=== PATIENT | female | born 1970 | race Caucasian/White ===

== ENCOUNTER 2019-04-17 15:36 | Emergency (ER) | payer OTHER ==
[~2019-04-17] VITALS: Ht 160 cm; Wt 62.1 kg
[~2019-04-17 15:36] MED LIST: DIL100 PO; DILANTIN100 MG PO; FER300 PO; VITC PO
[2019-04-17 15:39] VITALS: Ht 160 cm; Wt 62.1 kg
--- NOTE | 2019-04-17 15:42 | NUR ---
PT AWAKE, ALERT, NO SIGNS OF RESPIRATORY DISTRESS NOTED AT THIS TIME, DENIES CP ON ARRIVAL.
--- NOTE | 2019-04-17 15:43 | NUR ---
EKG DONE @ [facility].
--- NOTE | 2019-04-17 16:46 | NUR ---
MSE COMPLETED BY DR ROMAN. PT REPORTS SHE HAD A SYNCOPAL EPISODE LAST NIGHT; PRIOR TO SYNCOPAL EPISODE SHE FELT PALPITATIONS. PT REPORTS SHE IS HERE TODAY FOR CONCERN OF PALPITATIONS. NSR ON MONITOR AT THIS TIME. PT IS AAOX4; BREATHING E/U. NO SIGNS OF DISCOMFORT. PT STS SHE IS ALSO CONCERNED IF SHE HAS ANEMIA
[2019-04-17 17:04] LABS: PLATELET COUNT 392 x10^3mcL (130-400)
[2019-04-17 17:08] LABS: RED CELL DISTRIBUTION WIDTH 20.2 % (11.5-14.5)
[2019-04-17 17:09] LABS: CALCIUM 8.4 mg/dL (8.5-10.1); CARBON DIOXIDE 27.5 mmol/L (21-32); CHLORIDE SERUM 105 mmol/L (98-107); CREATININE SERUM 0.5 mg/dL (0.6-1.0); GFR1 > 60 mL/min; GLUCOSE SERUM 102 mg/dL (74-106); POTASSIUM SERUM 3.6 mmol/L (3.5-5.1); SODIUM SERUM 142 mmol/L (136-145)
[2019-04-17 17:13] LABS: ALBUMIN 3.8 g/dL (3.4-5.0); ALKALINE PHOSPHATASE 82 U/L (46-116); ALT/SGPT 23 U/L (14-59); AST/SGOT 4 U/L (15-37); BILIRUBIN TOTAL 0.5 mg/dL (0.20-1.00); MAGNESIUM 2.1 mg/dL (1.8-2.4); TOTAL PROTEIN, SERUM 7.6 g/dL (6.4-8.2)
[2019-04-17 17:30] LABS: T3 TOTAL 1.09 ng/mL
--- NOTE | 2019-04-17 17:30 | NUR ---
LYING ON GURNEY, FULL MONITORS IN PLACE. BREATHING E/U. NAD NOTED
[2019-04-17 17:50] LABS: BAND NEUTROPHIL 5 % (0-10); BASOPHIL 0 % (0-2); MONOCYTE 10 % (0-7); SEGMENTED NEUTROPHILS 60 % (37-75); rbc morphology (normal/abnorm) ABNORMAL (NORMAL)
[2019-04-17 17:52] LABS: PLATELET MORPHOLOGY PLATELETS NORMAL
[2019-04-17 17:58] LABS: FREE THYROXINE INDEX 2.6 ug/dL (1.4-4.5); T4(THYROXINE) 7.6 ug/dL (4.7-13.3)
--- NOTE | 2019-04-17 19:09 | NUR ---
PT IN POSITION OF COMFORT RESPS E/U CALL LIGHT WITHIN REACH
--- NOTE | 2019-04-17 19:09 | NUR ---
REPORT RECEIVED FROM KRISTEN HUSRT I WILL BE RESUMING CARE OF PT AT THIS TIME
--- NOTE | 2019-04-17 19:10 | NUR ---
PT C/O NAUSEA AND 8/10 HEAD PAIN MD ROMAN MADE AWARE
--- NOTE | 2019-04-17 19:12 | NUR ---
REPORT GIVEN TO DANDY HURST
--- NOTE | 2019-04-17 20:11 | NUR ---
PT IN POSITION OF COMFORT RESPS E/U FATHER AT BEDSIDE
--- NOTE | 2019-04-17 20:27 | NUR ---
PT REFUSED BLOOD TRANSFUSION. PT REQUESTS TO BE D/C AMA. PT STS "I DO NOT WANT TO STAY OVERNIGHT AND IT IS MY SON'S 9TH BIRTHDAY" PT EXPLAINED THE RISKS TO LEAVING AMA. MD ROMAN MADE AWARE PT AAOX4 VSS PT AMBULATORY WITH STEADY GAIT.
[2019-04-17 20:30] VITALS: BP 101/54
--- NOTE | 2019-04-17 20:30 | NUR ---
PT INSTRUCTED TO FOLLOW UP WITH PMD AND/OR RETURN HERE IF WORSENING S/S AND OR CONCERNS
== END 2019-04-17 20:30 | disposition left against medical advice (07) ==
LOC: ED 15:36 → DU 20:04 → ED 20:04
PROVIDERS: Emergency Medicine
DX: R55 Syncope and collapse (principal); D64.9 Anemia, unspecified; Z88.6 Allergy status to analgesic agent; Z98.890 Other specified postprocedural states
CPT/HCPCS: 84439; J1885; J2765; J7030

== ENCOUNTER 2020-06-21 18:15 | Emergency (ER) | payer OTHER ==
[~2020-06-21] VITALS: Ht 160 cm; Wt 65.8 kg
[2020-06-21 18:35] VITALS: Ht 160 cm; Wt 65.8 kg
[2020-06-21 20:00] LABS: microscopic required? YES; urine erythrocyte 3+ (NEGATIVE)
[2020-06-21 20:02] LABS: CALCIUM 8.2 mg/dL (8.5-10.1); CHLORIDE SERUM 106 mmol/L (98-107); CREATININE SERUM 0.8 mg/dL (0.6-1.0); GFR1 > 60 mL/min; GLUCOSE SERUM 100 mg/dL (74-106); POTASSIUM SERUM 3.6 mmol/L (3.5-5.1); SODIUM SERUM 142 mmol/L (136-145)
[2020-06-21 20:07] LABS: BASOPHIL % 0.3 % (0-2); PLATELET COUNT 366 x10^3mcL (130-400)
[2020-06-21 20:12] LABS: RED CELL DISTRIBUTION WIDTH 23.9 % (11.5-14.5)
[2020-06-21 20:14] LABS: ALBUMIN 3.8 g/dL (3.4-5.0); ALKALINE PHOSPHATASE 79 U/L (46-116); ALT/SGPT 21 U/L (14-59); AST/SGOT 11 U/L (15-37); BILIRUBIN TOTAL 0.36 mg/dL (0.20-1.00); MAGNESIUM 2.3 mg/dL (1.8-2.4); TOTAL PROTEIN, SERUM 7.6 g/dL (6.4-8.2)
[2020-06-21 21:30] VITALS: BP 105/67
== END 2020-06-21 21:30 | disposition home or self-care (01) ==
LOC: ED 18:15
PROVIDERS: Emergency Medicine
DX: N39.0 Urinary tract infection, site not specified (principal); R53.1 Weakness; Z86.2 Personal history of diseases of the blood and blood-forming organs and certain disorders involving the immune mechanism; Z98.890 Other specified postprocedural states
CPT/HCPCS: Q0092